=== PATIENT | female | born 1945 | race African-American/Black ===

== ENCOUNTER 2018-03-18 00:46 | Inpatient (IN) | payer MEDICARE, BC ==
[2018-03-17 20:00] VITALS: BP 155/66
[~2018-03-18] VITALS: Ht 152.4 cm; Wt 101.6 kg
[2018-03-18 02:12] VITALS: BP 130/70
[2018-03-18] MEDS ORDERED: DEXTROSE 50% WATER 50ML SYRINGE IV PRN (03:15)
[2018-03-18] MEDS ORDERED: NA PHOS,M-B/NA PHOS,DI-BA ENEMA 118ML PR PRN (03:15)
[2018-03-18] MEDS ORDERED: DOCUSATE SODIUM 100MG CAPSULE PO PRN (03:15)
[2018-03-18] MEDS ORDERED: ONDANSETRON 4MG ODT PO PRN (03:15)
[2018-03-18] MEDS ORDERED: ACETAMINOPHEN 325MG TABLET PO PRN (03:15)
[2018-03-18] MEDS ORDERED: OXYCODONE HCL/ACETAMINOPHEN 5/325MG TABLET PO PRN (03:15)
[2018-03-18] MEDS ORDERED: GUAIFENESIN 200MG/10ML SUGAR FREE UDC PO PRN (03:15)
[2018-03-18] MEDS ORDERED: IPRATROPIUM/ALBUTEROL 0.5-3(2.5)MG/3ML NEB INH PRN (03:15)
[2018-03-18 04:00] VITALS: BP 158/79
[2018-03-18] MEDS: DIPHENHYDRAMINE 50MG/ML VIAL IV PRN (04:16)
[2018-03-18] MEDS: LORAZEPAM 0.5MG TABLET PO PRN ×3 (04:16→15:39)
[2018-03-18] MEDS: BLOOD SUGAR DIAGNOSTIC STRIP TEST SCH ×4 (06:28→21:00)
[2018-03-18] MEDS: SODIUM CHLORIDE 0.9% INJ 3ML FLUSH IVF SCH ×3 (06:29→22:05)
[2018-03-18] MEDS: INSULIN LISPRO 100 UNITS/ML SUBCUT SCH ×4 (06:35→21:00)
[2018-03-18] MEDS ORDERED: ROCURONIUM BROMIDE 10MG/ML VIAL 5ML IV ONE (07:04)
[2018-03-18] MEDS ORDERED: FENTANYL CITRATE/PF 50MCG/ML 5ML VIAL ONE (07:04)
[2018-03-18] MEDS ORDERED: PROPOFOL 200MG/20ML VIAL IV ONE (07:04)
[2018-03-18] MEDS ORDERED: MIDAZOLAM HCL 2 MG/2 ML VIAL ONE (07:06)
[2018-03-18 08:00] VITALS: BP 169/64
[2018-03-18] MEDS ORDERED: ONDANSETRON HCL 4MG/2ML INJ IV PRN (09:45)
[2018-03-18] MEDS ORDERED: NITROGLYCERIN 0.4MG TABLET SL SL PRN (09:45)
[2018-03-18] MEDS ORDERED: KETOROLAC 30MG/ML VIAL IV PRN (09:45)
[2018-03-18] MEDS ORDERED: MAGNESIUM/ALUMINUM HYDROXIDE/SIMETHICONE 30ML UDC PO PRN (09:45)
[2018-03-18 10:43] LABS: HEMATOCRIT 25.9 % (36.0-48.0); HEMOGLOBIN 8.5 g/dL (12.0-16.0); MEAN CORPUSCULAR HEMOGLOBIN 28.8 pg (28.0-32.0); MEAN CORPUSCULAR VOLUME 87.7 fL (81.0-99.0); PLATELET 295 x1000/uL (130-400); RED BLOOD CELL COUNT 2.96 mill/uL (4.2-5.4); RED CELL DISTRIBUTION WIDTH 15.6 % (11.6-14.6)
[2018-03-18 10:50] LABS: PROTHROMBIN TIME 10.1 sec (9.1-11.1)
[2018-03-18] MEDS: METOPROLOL TARTRATE 25MG TABLET PO SCH ×2 (11:05→22:04)
[2018-03-18 11:13] LABS: CHLORIDE 111 mEq/L (98-107)
[2018-03-18 11:25] LABS: HDL CHOLESTEROL 53 mg/dL (40-59); LDL CHOLESTEROL 71 mg/dL (5-100)
[2018-03-18 12:00] VITALS: BP 133/76
[2018-03-18] MEDS: FAMOTIDINE 20MG TABLET PO SCH (12:32)
[2018-03-18] MEDS: ENOXAPARIN 30MG/0.3ML SYR SUBCUT SCH (13:27)
[2018-03-18 16:00] VITALS: BP 157/70
[2018-03-18 19:35] LABS: T4 FREE 1.08 ng/dL (0.76-1.46)
[2018-03-18 19:58] LABS: FOLIC ACID (FOLATE) SERUM 7.9 ng/mL (>5.38)
[2018-03-18 20:00] VITALS: BP 173/81
[2018-03-18] MEDS ORDERED: ZOLPIDEM TARTRATE 5MG TABLET PO PRN (21:00)
[2018-03-18] MEDS: LISINOPRIL 20MG TABLET PO SCH (22:04)
[2018-03-19] VITALS: BP 148/72
[2018-03-19] MEDS: DIPHENHYDRAMINE 50MG/ML VIAL IV PRN ×2 (02:51→22:49)
[2018-03-19] MEDS: LORAZEPAM 0.5MG TABLET PO PRN (02:52)
[2018-03-19] MEDS: ENOXAPARIN 30MG/0.3ML SYR SUBCUT SCH ×3 (03:00→22:50)
[2018-03-19 04:00] VITALS: BP 144/121
[2018-03-19] MEDS: INSULIN LISPRO 100 UNITS/ML SUBCUT SCH ×4 (06:43→20:32)
[2018-03-19] MEDS: BLOOD SUGAR DIAGNOSTIC STRIP TEST SCH ×4 (06:43→20:32)
[2018-03-19] MEDS: SODIUM CHLORIDE 0.9% INJ 3ML FLUSH IVF SCH ×3 (06:43→21:26)
[2018-03-19] MEDS: FAMOTIDINE 20MG TABLET PO SCH ×2 (09:00→10:18)
[2018-03-19] MEDS: METOPROLOL TARTRATE 25MG TABLET PO SCH ×3 (09:00→20:32)
[2018-03-19] MEDS: LISINOPRIL 20MG TABLET PO SCH ×3 (09:00→20:32)
[2018-03-19 12:22] VITALS: BP 132/79
[2018-03-19] MEDS ORDERED: LORAZEPAM 2MG/ML CPJ IV SCH (12:30)
[2018-03-19 17:46] VITALS: BP 133/76
[2018-03-19 17:59] LABS: CLARITY URINE CLOUDY (CLEAR); COLOR URINE YELLOW (YELLOW); KETONES URINE NEGATIVE (NEGATIVE); LEUKOCYTE ESTERASE URINE 3+ (NEGATIVE); NITRITE URINE NEGATIVE (NEGATIVE); OCCULT BLOOD URINE TRACE (NEGATIVE); PH URINE 6.5 (4.5-8.0); PROTEIN URINE 2+ (NEGATIVE); SPECIFIC GRAVITY URINE 1.014 (1.005-1.030)
[2018-03-19] MEDS: HALOPERIDOL LACTATE 5MG/ML VIAL IM PRN (20:18)
[2018-03-19] MEDS: LORAZEPAM 2MG/ML CPJ IV PRN (21:26)
[2018-03-20] MEDS: DIPHENHYDRAMINE 50MG/ML VIAL IV PRN (02:49)
[2018-03-20] MEDS: LORAZEPAM 2MG/ML CPJ IV PRN ×3 (06:06→23:13)
[2018-03-20] MEDS: SODIUM CHLORIDE 0.9% INJ 3ML FLUSH IVF SCH ×3 (06:10→21:16)
[2018-03-20] MEDS: INSULIN LISPRO 100 UNITS/ML SUBCUT SCH ×4 (06:28→21:00)
[2018-03-20] MEDS: BLOOD SUGAR DIAGNOSTIC STRIP TEST SCH ×4 (06:28→21:00)
[2018-03-20] MEDS: METOPROLOL TARTRATE 25MG TABLET PO SCH ×2 (08:43→21:13)
[2018-03-20] MEDS: LISINOPRIL 20MG TABLET PO SCH ×2 (08:43→21:13)
[2018-03-20] MEDS: FAMOTIDINE 20MG TABLET PO SCH (08:44)
[2018-03-20] MEDS: HALOPERIDOL LACTATE 5MG/ML VIAL IM PRN ×2 (09:11→21:16)
[2018-03-20] MEDS: MORPHINE SULFATE 4 MG/ML CPJ (NOT FOR IM USE) IV PRN ×2 (10:48→17:46)
[2018-03-20 12:00] VITALS: BP 136/89
[2018-03-20] MEDS: ENOXAPARIN 30MG/0.3ML SYR SUBCUT SCH (12:58)
[2018-03-20 16:00] VITALS: BP 156/65
[2018-03-20] MEDS ORDERED: LEVOFLOXACIN 500MG PREMIX 100 ML IV SCH (16:00)
[2018-03-20 20:01] VITALS: BP 199/108
[2018-03-21] VITALS (10 sets, daily range): BP systolic 127–185; BP diastolic 69–116
[2018-03-21] MEDS: CLONIDINE 0.1MG TABLET PO PRN ×2 (00:05→23:28)
[2018-03-21] MEDS: MORPHINE SULFATE 4 MG/ML CPJ (NOT FOR IM USE) IV PRN (00:06)
[2018-03-21] MEDS: ENOXAPARIN 30MG/0.3ML SYR SUBCUT SCH ×2 (00:13→12:12)
[2018-03-21] MEDS: SODIUM CHLORIDE 0.9% INJ 3ML FLUSH IVF SCH ×3 (05:54→21:47)
[2018-03-21] MEDS: BLOOD SUGAR DIAGNOSTIC STRIP TEST SCH ×4 (06:39→21:44)
[2018-03-21] MEDS: INSULIN LISPRO 100 UNITS/ML SUBCUT SCH ×4 (06:40→21:00)
[2018-03-21] MEDS: LISINOPRIL 20MG TABLET PO SCH ×2 (08:24→21:44)
[2018-03-21] MEDS: FAMOTIDINE 20MG TABLET PO SCH (08:24)
[2018-03-21] MEDS: METOPROLOL TARTRATE 25MG TABLET PO SCH ×2 (08:24→21:44)
[2018-03-21] MEDS: LORAZEPAM 2MG/ML CPJ IV PRN (13:47)
[2018-03-21] MEDS: LEVOFLOXACIN 500MG TABLET PO SCH (16:06)
[2018-03-22] VITALS: BP 170/74
[2018-03-22] MEDS: ENOXAPARIN 30MG/0.3ML SYR SUBCUT SCH ×2 (01:39→12:22)
[2018-03-22 04:00] VITALS: BP 141/61
[2018-03-22] MEDS: SODIUM CHLORIDE 0.9% INJ 3ML FLUSH IVF SCH ×3 (06:00→20:21)
[2018-03-22] MEDS: BLOOD SUGAR DIAGNOSTIC STRIP TEST SCH ×4 (06:23→20:30)
[2018-03-22] MEDS: INSULIN LISPRO 100 UNITS/ML SUBCUT SCH ×4 (06:23→20:29)
[2018-03-22 08:09] VITALS: BP 184/77
[2018-03-22] MEDS: LISINOPRIL 20MG TABLET PO SCH ×3 (08:22→20:21)
[2018-03-22] MEDS: FAMOTIDINE 20MG TABLET PO SCH ×2 (08:23→09:00)
[2018-03-22] MEDS: METOPROLOL TARTRATE 25MG TABLET PO SCH ×3 (08:23→20:21)
[2018-03-22] MEDS ORDERED: CLONIDINE HCL 0.1MG/24HR PATCH TD NR (09:45)
[2018-03-22] MEDS: LEVOFLOXACIN 500MG TABLET PO SCH (11:00)
[2018-03-22 11:54] VITALS: BP 169/73
[2018-03-22] MEDS: CLONIDINE 0.1MG TABLET PO PRN (14:48)
[2018-03-22] MEDS: HALOPERIDOL LACTATE 5MG/ML VIAL IM PRN (15:14)
[2018-03-22 16:00] VITALS: BP 171/79
[2018-03-22] MEDS ORDERED: CLONIDINE HCL 0.3MG/24HR PATCH TD SCH (17:30)
[2018-03-22 20:00] VITALS: BP 168/93
[2018-03-23] VITALS: BP 157/82
[2018-03-23] MEDS: ENOXAPARIN 30MG/0.3ML SYR SUBCUT SCH ×2 (01:49→11:48)
[2018-03-23 04:00] VITALS: BP 175/74
[2018-03-23] MEDS: CLONIDINE 0.1MG TABLET PO PRN ×2 (04:44→11:43)
[2018-03-23] MEDS: LORAZEPAM 2MG/ML CPJ IV PRN ×2 (05:46→12:08)
[2018-03-23] MEDS: BLOOD SUGAR DIAGNOSTIC STRIP TEST SCH ×2 (06:06→11:49)
[2018-03-23] MEDS: SODIUM CHLORIDE 0.9% INJ 3ML FLUSH IVF SCH ×2 (06:06→14:35)
[2018-03-23] MEDS: INSULIN LISPRO 100 UNITS/ML SUBCUT SCH ×2 (06:06→11:49)
[2018-03-23 08:00] VITALS: BP 190/72
[2018-03-23] MEDS: LISINOPRIL 20MG TABLET PO SCH (09:19)
[2018-03-23] MEDS: FAMOTIDINE 20MG TABLET PO SCH (09:19)
[2018-03-23] MEDS: METOPROLOL TARTRATE 25MG TABLET PO SCH (09:20)
[2018-03-23] MEDS ORDERED: AMLODIPINE 10MG TABLET PO SCH (09:45)
[2018-03-23] MEDS: LEVOFLOXACIN 500MG TABLET PO SCH (10:26)
[2018-03-23 12:00] VITALS: BP 195/79
[2018-03-23 12:49] VITALS: BP 156/75
[2018-03-23] MEDS ORDERED: HYDRALAZINE HCL 50MG TABLET PO SCH (14:00)
[2018-03-23] MEDS: DIPHENHYDRAMINE 50MG/ML VIAL IV PRN (16:16)
== END 2018-03-23 16:34 | DRG 871 ==
LOC: 8WST 00:46
PROVIDERS: ADMIT Internal Medicine; ATTEND Internal Medicine
DX: A41.9 Sepsis, unspecified organism (principal); G92 Toxic encephalopathy; E44.1 Mild protein-calorie malnutrition; F05 Delirium due to known physiological condition; N39.0 Urinary tract infection, site not specified; E11.9 Type 2 diabetes mellitus without complications; D63.8 Anemia in other chronic diseases classified elsewhere; M79.652 Pain in left thigh; M79.651 Pain in right thigh; F03.90 Unspecified dementia, unspecified severity, without behavioral disturbance, psychotic disturbance, mood disturbance, and anxiety; E78.00 Pure hypercholesterolemia, unspecified; I10 Essential (primary) hypertension; M19.90 Unspecified osteoarthritis, unspecified site; Z87.81 Personal history of (healed) traumatic fracture; Z79.4 Long term (current) use of insulin; Z79.899 Other long term (current) drug therapy; Z88.5 Allergy status to narcotic agent; Z88.8 Allergy status to other drugs, medicaments and biological substances
CPT/HCPCS: 36415; 73521; 80053; 80061; 81003; 82607; 82746; 82962; 83036; 83540; 83550; 84439; 84443; 85027; 85610; 87077; 87086; 87186; 93970; C1893; J1200; J1630; J1650; J1815; J1956; J2060; J2250; J2270; J2704; J3010; J3490; J7050; A4315